=== PATIENT | female | born 1975 | race Caucasian/White ===

== ENCOUNTER 2022-06-27 12:48 | Outpatient (CLI) | payer OTHER, SELFPAY | END 2022-06-27 12:49 | disposition home or self-care (01) | LOC: OP CLINIC 12:52 | PROVIDERS: Visit Provider Surgery | DX: Z12.11 Encounter for screening for malignant neoplasm of colon (principal); K63.5 Polyp of colon | CPT/HCPCS: 45385; 88304; 99153; J1200; J2250; J3010 ==